=== PATIENT | female | born 1970 | race Two or more races ===

== ENCOUNTER 2018-06-14 22:05 | Emergency (ER) | payer MEDICAID ==
[~2018-06-14] VITALS: Ht 157.5 cm; Wt 71.2 kg
[2018-06-14 23:16] LABS: Basophils # (auto) 0.1 uL; Eosinophils # (auto) 0.1 uL; Hemoglobin 9.5 g/dL (12.2-16.2); Lymphocytes # (auto) 1.9 uL; Monocytes # (auto) 0.4 uL; Neutrophils # (auto) 4.8 uL
[2018-06-14 23:17] LABS: Basophils % (auto) 1.1 % (0.0-2.0); Eosinophils % (auto) 1.4 % (0.0-7.0); Hematocrit 28.9 % (36.0-46.0); Lymphocytes % (auto) 26.6 % (10.0-50.0); Mean Corpuscular Hemoglobin 26.1 pg (28.0-32.0); Mean Corpuscular Hgb Conc. 32.9 g/dL (32.0-36.0); Mean Corpuscular Volume 79.1 fL (80.0-100.0); Monocytes % (auto) 5.1 % (0.0-12.0); Neutrophils % (auto) 65.8 % (37.0-80.0); Platelet Count (auto) 550 10^3/uL (140-450); Red Blood Cells 3.65 10^6/uL (4.0-5.20); Red Cell Distribution Width 15.3 % (11.8-14.3); White Blood Cell 7.2 10^3/uL (4.4-10.8)
[2018-06-14 23:30] LABS: Potassium 4.1 mmol/L (3.5-5.1)
[2018-06-14 23:33] LABS: Albumin 3.9 g/dL (3.4-5.0); BUN/Creatinine Ratio 17.8
[2018-06-14 23:36] LABS: Bilirubin, Total 0.3 mg/dL (0.2-1.0); Total Protein 7.5 g/dL (6.4-8.2)
[2018-06-14 23:54] LABS: Urine Amorphous Crystal MOD /hpf (None Seen); Urine Bacteria MANY /hpf (None Seen); Urine Blood 2+ /uL (Negative); Urine Budding Yeast FEW /hpf (None Seen); Urine Mucus FEW (None Seen); Urine WBC 10 /hpf (0 - 5); Urine WBC Clumps PRESENT /hpf (None Seen)
[2018-06-15] MEDS ORDERED: SODIUM CHLORIDE 0.9% 1,000 ML IV ONE (03:45)
[2018-06-15] MEDS ORDERED: SODIUM CHLORIDE 0.9% 1,000 ML IVB ONE (07:28)
[2018-06-15] MEDS ORDERED: PROMETHAZINE HCL 25 MG/ML 1ML IV PRN (07:30)
[2018-06-15] MEDS: NALBUPHINE HCL 10 MG/1ml INJECTION IV ONE ×2 (07:30→09:12)
[2018-06-15 08:43] LABS: INR 0.97 (0.9-1.15); Partial Thromboplastin Time 25.7 sec (23.78-33.04); Prothrombin Time 10.4 sec (9.27-12.13)
[2018-06-15 09:20] VITALS: BP 121/75
== END 2018-06-15 10:43 | disposition home or self-care (01) ==
LOC: ER 22:12
DX: N93.9 Abnormal uterine and vaginal bleeding, unspecified (principal); D25.9 Leiomyoma of uterus, unspecified; D50.9 Iron deficiency anemia, unspecified; R11.2 Nausea with vomiting, unspecified; R82.71 Bacteriuria; Z32.02 Encounter for pregnancy test, result negative
CPT/HCPCS: 36415; 76856; 80053; 81001; 81025; 83735; 84443; 85025; 85610; 85730; 96361; 96374; 96375; 99284; J2300; J2550; J7030